=== PATIENT | male | born 1975 | race Caucasian/White ===

== ENCOUNTER 2021-08-27 19:11 | Emergency (ER) | payer OTHER, MEDICAID, SELFPAY ==
[2021-08-27 19:42] VITALS: BP 108/71; PULSE 66; RESP 18; TEMP 36.9; O2SAT 98; BMI 26.5
--- NOTE | 2021-08-27 21:08 | ED.EYEPROB ---
HPI - Eye Problem General Chief complaint: Eye Problems Stated complaint: eye pain Source: patient Mode of arrival: ambulatory Limitations: no limitations History of Present Illness HPI Narrative: Patient presents to ED for left lower eyelid swelling with redness and pain since yesterday. Patient states he woke up like this yesterday. Patient denies any trauma to the eye, change in vision, blurry vision, eye ball pain, headache, dizziness, fever, or chills. Patient does not were contact Related Data Previous Rx's Medication Instructions Recorded cefpodoxime 200 mg tablet 400 mg PO Q12H #14 tab 08/27/21 naproxen 500 mg tablet 500 mg PO BID PRN #20 tab 08/27/21 sulfamethoxazole 800 1 tab PO BID 7 Days #14 tab 08/27/21 mg-trimethoprim 160 mg tablet (Bactrim DS) Allergies Allergy/AdvReac Type Severity Reaction Status Date / Time Penicillins Allergy Unknown Verified 08/27/21 19:46 Review of Systems Review of Systems: Yes all other systems are reviewed and are negative Constitutional: Constitutional: Reports as per HPI and Reports no additional constitutional complaints Eyes: Eyes: Reports as per HPI, Reports no additional eye complaints and Reports eye pain ENT: Reports system reviewed and no additional complaints, except as documented and Reports as per HPI Cardiovascular: Cardiovascular: Reports as per HPI and Reports no additional cardiovascular complaints Respiratory: Respiratory: Reports as per HPI and Reports no additional respiratory complaints Gastrointestinal: Gastrointestinal: Reports as per HPI and Reports no additional gastrointestinal complaints Musculoskeletal: Musculoskeletal: Reports no additional musculoskeletal complaints and Reports as per HPI Neurologic: Reports system reviewed and no additional complaints, except as documented and Reports as per HPI Psychiatric: Psychiatric: Reports no additional psychiatric complaints and Reports as per HPI [facility] Social History Social History Advance Directives: No Physical Exam Vital Signs: Vital Signs: Last Vital Signs Temp 98.4 F 08/27/21 19:42 Pulse 66 08/27/21 19:42 Resp 18 08/27/21 19:42 BP 108/71 08/27/21 19:42 Pulse Ox 98 08/27/21 19:42 Body Mass Index 26.5 Const: General: cooperative, healthy appearing, comfortable, no acute distress, well developed, alert and awake Orientation/consciousness: patient oriented x3 HENMT: Head: Yes normal to inspection, Yes No palpable skull fracture present, Yes normocephalic and Yes atraumatic Eyes: General: appearance normal, both eyes and all related structures Eyes/upper lids images: 1. Positive for redness and tenderness on palpation. Negative for any internal stye. Negative for erythema of of conjunctiva, sclera. Negative for photophobia. Neck: Neck: Yes normal visual inspection, Yes full ROM, Yes no lymphadenopathy, Yes no meningeal signs, Yes trachea midline, Yes supple and No tender Chest: Chest palpation & inspection: normal inspection of the chest and normal palpation of entire chest wall Resp: Effort & Inspection: normal respiratory effort and able to speak in complete sentences Auscultation: clear to auscultation bilaterally Cardio: Jugular venous distension: no JVD Heart sounds: S1 normal heart sound present and S2 normal heart sound present GI: Inspection: Yes normal to inspection and No abdominal wall ecchymosis Palpation (GI): Soft to palpation, not firm, nontender, no guarding and not rigid : General: No CVA tenderness and Yes no CVA tenderness Back/Spine/Pelvis: Back: no CVA tenderness, No CVA tenderness and No back tenderness Skin: General skin exam: no rashes or lesions noted and elasticity normal Neuro: General: patient oriented x3, gait normal, no meningeal signs and CN's II-XI intact bilaterally Cranial nerves: Yes CN's II-XII intact bilaterally Extrem: General: Yes normal to inspection and Yes full ROM Psych: Appearance: grossly normal, well kempt and not disheveled Course Course Course Narrative: History physical exam indicate preseptal cellulitis. Reevaluation(s) Reevaluation #1: Patient will be discharged with antibiotics. Patient educated on warm compress MDM - Eye Problem MDM Narrative Medical decision making narrative: Preseptal cellulitis Discharge Plan Discharge Clinical Impression: Periorbital cellulitis Patient Disposition: Home, Self-Care Instructions: Periorbital Cellulitis in Adults (ED) Additional Instructions: You will be discharged with antibiotics. Recommend placing warm compress on left eyelid 4 times a day for 15 minutes. Return to the ED for any worsening eye swelling, loss/change in vision, headache, dizziness, fever, chills, or any other concerning symptoms. Please follow-up with primary care provider Prescriptions: New sulfamethoxazole-trimethoprim [Bactrim DS] 800-160 mg tablet 1 tab PO BID 7 Days Qty: 14 RF: 0 cefpodoxime 200 mg tablet 400 mg PO Q12H Qty: 14 RF: 0 naproxen 500 mg tablet 500 mg PO BID PRN (Reason: pain) Qty: 20 RF: 0 Interventions: ED Discharge Assessment Last Done: 08/27/21 21:33 Discharge Date/Time: 08/27/21 21:36 Print Language: Macedonian
[2021-08-27] MEDS: Sulfamethox/Trimeth 800/160 TABLET 1 TAB PO (21:32)
== END 2021-08-27 21:36 | disposition home or self-care (01) ==
PROVIDERS: Emergency Provider Emergency Medicine; PCP Family Medicine
DX: L03.213 Periorbital cellulitis (principal); H57.12 Ocular pain, left eye; Z79.899 Other long term (current) drug therapy
CPT/HCPCS: 99283